=== PATIENT | male | born 1945 | race Caucasian/White ===

== ENCOUNTER 2017-05-01 11:50 | Emergency (ER) | payer MEDICARE, OTHER ==
--- NOTE | ~2017-05-01 | CR63 ---
[facility] A Service of [facility] RADIOLOGY TEXT RESULTS PATIENT: MARYANNE VILLANUEVA LOCATION: SED : 44 UNIT #: [id number] AGE: [address]: VITA STERN SEX: M ORDER DR: [id number] [place] [id number] E MR#: [id number] Acc #: [id number] NAME: MARYANNE VILLANUEVA. : 1945 SEX: M STUDY DATE/TIME: 05/01/2017 12:40 UNIT: SED ROOM: STUDY DESCRIPTION: CR Chest 2 View Attending Physician: Vita Stern Aprn Ordering Physician: Vita Stern Aprn Primary Care Physician: Naveen Ham M.D. MEDICAL IMAGING REPORT This report is preliminary unless electronic signature is present. EXAM Chest, 05/01/2017, [facility]. HISTORY 71-year-old male chest pain right-side. Symptoms x2 months. COMPARISON Chest CT 11/03/2014, conventional chest 02/11/2016. FINDINGS Two-view chest demonstrates normal cardiac size and configuration. Hilar structures and mediastinal structures are preserved. Bilateral lungs are hyperinflated with flattened diaphragms. There are no lung infiltrates. Previously described subpleural nodule right upper lobe lateral aspect is unchanged on conventional imaging. There are no additional pulmonary nodules or infiltrates. IMPRESSION Continued findings consistent with COPD. Stable subpleural nodule right upper lateral hemithorax. No acute chest finding. Dictated by... Blayne Devine M.D. THIS IS AN ELECTRONICALLY VERIFIED REPORT Blayne Devine M.D. at 05/02/2017 9:39 AM ALTHEA/maura TD: 05/01/2017 16:11 JOB #: [id number] [facility] A Service of [facility] RADIOLOGY TEXT RESULTS PATIENT: MARYANNE VILLANUEVA LOCATION: SED : 44 UNIT #: [id number] AGE: [address]: VITA STERN SEX: M ORDER DR: MEDICAL IMAGING REPORT Page 1 of 1
--- NOTE | ~2017-05-01 | CT4 ---
[facility] A Service of [facility] RADIOLOGY TEXT RESULTS PATIENT: MARYANNE VILLANUEVA LOCATION: SED : 44 UNIT #: [id number] AGE: [address]: VITA STERN SEX: M ORDER DR: [id number] [place] [address] [id number] E MR#: [id number] Acc #: [id number] NAME: MARYANNE VILLANUEVA. : 1945 SEX: M STUDY DATE/TIME: 05/01/2017 12:49 UNIT: SED ROOM: STUDY DESCRIPTION: CT Abd and Pelv Wo Cont Attending Physician: Vita Stern Aprn Ordering Physician: Vita Stern Aprn Primary Care Physician: Naveen Ham M.D. MEDICAL IMAGING REPORT This report is preliminary unless electronic signature is present. EXAM CT abdomen and pelvis. INDICATION Right flank pain and low back pain for 2 months. Chest pain. TECHNIQUE CT of the abdomen and pelvis without contrast. Coronal and sagittal reconstructions were obtained. This CT exam was performed with one or more of the following radiation dose reduction techniques: automatic exposure control, adjustment of mA and/or kV according to patient size, and iterative reconstruction. COMPARISON CT abdomen and pelvis dated 06/11/2014. FINDINGS ABDOMEN: There is a nonobstructing calculus in the superior pole left kidney measuring 3 mm. No hydronephrosis or ureteral calculi. There is a 3 mm nonobstructing calculus in the superior pole right kidney. No hydronephrosis or ureteral calculi. The abdominal aorta is normal in caliber. 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 The bowel is not dilated. There is occasional colonic diverticula. PELVIS: No enlarged pelvic or inguinal lymph nodes. There is some mild bladder wall thickening. Correlate for any evidence of a cystitis. Mild prostatic hypertrophy. No acute osseous abnormalities. [facility] A Service of [facility] RADIOLOGY TEXT RESULTS PATIENT: MARYANNE VILLANUEVA LOCATION: SED : 44 UNIT #: [id number] AGE: [address]: VITA STERN SEX: M ORDER DR: IMPRESSION 1. Mild circumferential thickening of the bladder. Correlate for any evidence of a cystitis. 2. Nonobstructing bilateral renal calculi. 3. Prostatic hypertrophy and diverticulosis. Dictated by... Eyal Lind M.D. THIS IS AN ELECTRONICALLY VERIFIED REPORT Eyal Lind M.D. at 05/01/2017 4:49 PM RPC/maura TD: 05/01/2017 16:24 JOB #: [id number] MEDICAL IMAGING REPORT Page 1 of 1
[~2017-05-01 11:50] MED LIST: ACETAMINOPHEN PO; ACID REDUCER20 MG PO; AFRIN3 ML NS; ALEVE220 M1 PO; ANTACID; ANTIHISTAMINE OTC; ASPIRIN PO; CARAFATE1 G PO; COMBIVENT MININEB INH; FLOMAX0.4 MG PO; GABAPENTIN300 M2 PO; INDOCIN SR75 MG PO; KEFLEX500 M1 PO; LEVAQUIN PO; LOC PO; MILK OF MAGNESIA PO; NO MEDICATIONS; NORCO 5/325 TAB1 TAB PO; OMNICEF300 MG PO; PERCOCET 7.5-31 EACH PO; PERCOCET7.5 PO; PHENERGAN25 M1 DOB; PRILOSEC20 M1 PO; PRILOSEC20 MG PO; PROTONIX PO; RANITIDINE HCL150 M1 PO; REGLAN10 MG PO; TYLENOL325 M1 PO; UNK ANTIBIOTIC
[2017-05-01] MEDS ORDERED: NO MEDICATIONS (11:59)
[2017-05-01 12:32] LABS: URINE APPEARANCE CLEAR; URINE BILIRUBIN NEG (NEG); URINE BLOOD NEG (NEG); URINE COLOR YELLOW; URINE GLUCOSE NEG (NORM); URINE KETONE TRACE (NEG); URINE LEUKOCYTE ESTERASE NEG (NEG); URINE NITRATE NEG (NEG); URINE PH 5.5 (5-8); URINE PROTEIN NEG (NEG); URINE SOURCE CLEAN CATCH; URINE SPECIFIC GRAVITY >=1.030 (1.003-1.035); URINE UROBILINOGEN 0.2 MG/DL (NORM)
[2017-05-01 12:37] LABS: MICRO INDICATED? NO
[2017-05-01 12:43] LABS: BASOPHIL# 0.1 X10e3 (0-0.3); BASOPHIL% 0.7 % (0-2.5); EOSINOPHIL# 0.3 X10e3 (0-0.7); EOSINOPHIL% 2.9 % (0.0-7.0); HEMATOCRIT 39.3 % (38.0-50.0); HEMOGLOBIN 12.9 gm/dL (13.0-16.0); LYMPHOCYTE% 45.6 % (17.0-45.0); MEAN CELL VOLUME 84.1 FL (83-96); MEAN CORPUSCULAR HEMOGLOBIN 27.7 PG (28-34); MEAN CORPUSCULAR HGB CONC 32.9 g/dL (30-36); MEAN PLATELET VOLUME 9.6 FL (6.5-11.5); MONOCYTE# 0.9 X10e3 (0-1.0); MONOCYTE% 10.3 % (3.0-12.0); NEUTROPHIL# 3.6 X10e3 (1.5-7.1); NEUTROPHIL% 40.5 % (40-75); PLATELET COUNT 281 X10e3 (140-420); RED BLOOD COUNT 4.68 X10e (3.90-5.60); RED CELL DISTRIBUTION WIDTH 16.1 % (11.0-15.5); WHITE BLOOD COUNT 8.9 X10e3 (4.0-10.5)
[2017-05-01 12:54] LABS: DIFF IND NO
[2017-05-01 13:05] LABS: ALBUMIN SERUM 4.2 g/dL (3.5-5.0); BILIRUBIN, DIRECT 0.1 mg/dL (0.0-0.2); BILIRUBIN,INDIRECT 0.2 mg/dL (0.0-0.9); BILIRUBIN,TOTAL 0.3 mg/dL (0.2-2.0); BUN/CREATININE RATIO 13.07; CALCIUM SERUM 8.9 mg/dL (8.4-10.2); CREATININE SERUM 1.3 mg/dL (0.6-1.4); GLOM FILT RATE Estimated 54.5 mL/min (>60); POTASSIUM 4.6 mmol/L (3.5-5.1); PROTEIN TOTAL SERUM 7.2 g/dL (6.0-8.3)
== END 2017-05-01 14:55 | disposition home or self-care (01) ==
LOC: SED 11:50
PROVIDERS: Nurse Practitioner Family
DX: R10.9 Unspecified abdominal pain (principal); R11.0 Nausea; E11.9 Type 2 diabetes mellitus without complications; I10 Essential (primary) hypertension; F17.200 Nicotine dependence, unspecified, uncomplicated; Z90.89 Acquired absence of other organs; Z88.8 Allergy status to other drugs, medicaments and biological substances
CPT/HCPCS: 36415; 71020; 74176; 80048; 80076; 81003; 82150; 83690; 85025; 96361; 96374; 96375; 99284; J1885; J2405; J2550